=== PATIENT | female | born 1945 | race American Indian/Alaskan Native ===

== ENCOUNTER 2017-12-16 10:14 | Emergency (ER) | payer MEDICARE, OTHER ==
[2017-12-16 10:25] VITALS: BP 176/77
--- NOTE | 2017-12-16 10:45 | Emergency Department Report ---
ED Head Trauma HPI - General Chief complaint: Extremity Injury, Upper Stated complaint: HEAD INJURY Time Seen by Provider: 12/16/17 10:37 Source: patient Mode of arrival: Ambulatory Limitations: No Limitations - History of Present Illness Initial comments: This is a 72-year-old -[place] female who presents with a laceration to left. Patient reports having a television fall on her head around 0200 this morning waking her out of her sleep. She is visiting family from [place] and worried this is possibly a hematoma. States TV has always been unsteady the entire time she has been at home. Her grandson moved a game from the area they had support for television stand. She decided to put something else there to help keep stand steady earlier that day. She thought it was steady and fell asleep on the sofa. She was laying on the sofa and the television fell on her head waking her out of sleep. She cleaned the laceration with water and applied paper towel and pressure for 1 hour prior to coming in. She is experiencing a headache. Denies nausea or vomiting, visual changes, chest pain, numbness or tingling, and shortness of breath. MD Complaint: head injury -: Last night Mechanism of Injury: other (direct blow to head by TV) Location: parietal (left lateral) Loss of Consciousness: no Place: home (son house) Radiation: none Severity: mild Severity scale (0 -10): 2 Quality: aching Consistency: intermittent Provoking factors: other (TV fell off a TV stand) Other Injuries: laceration Associated Symptoms: other (headache). denies: confusion, amnesia, repetitive questioning, vision changes, nausea, vomiting, vertigo, syncope, numbness, weakness, tingling, neck pain - Related Data Previous Rx's Medication Instructions Recorded Last Taken Type Ibuprofen [Motrin 800 MG tab] 800 mg PO Q8HR PRN #15 tablet 12/16/17 Unknown Rx Allergies/Adverse reactions: Allergies Allergy/AdvReac Type Severity Reaction Status Date / Time No Known Allergies Allergy Unverified 12/16/17 10:27 ED Review of Systems ROS: Stated complaint: HEAD INJURY Other details as noted in HPI Constitutional: denies: chills, fever Respiratory: denies: cough, shortness of breath, wheezing Cardiovascular: denies: chest pain, palpitations Gastrointestinal: denies: abdominal pain, nausea, diarrhea Skin: lesions (laceration to left lateral parietal scalp). denies: rash Neurological: denies: headache, weakness, numbness, paresthesias Psychiatric: denies: anxiety, depression ED Past Medical Hx - Past Medical History Hx Hypertension: Yes Hx Diabetes: Yes Additional medical history: HYPOTHYROIDISM. GOUT - Surgical History Past Surgical History?: Yes Additional Surgical History: SAWYER KNEE REPLACEMENT. BACK SURGERY 1989 - Social History Smoking Status: Never Smoker Substance Use Type: None - Medications Home Medications: Home Medications Medication Instructions Recorded Confirmed Last Taken Type Ibuprofen [Motrin 800 MG tab] 800 mg PO Q8HR PRN #15 tablet 12/16/17 Unknown Rx ED Physical Exam - General Limitations: No Limitations General appearance: alert, in no apparent distress - Head Head exam: Present: atraumatic, normocephalic, other (3 cm laceration to left lateral parietal scalp, swelling, no active bleeding or ecchymosis) - Eye Eye exam: Present: normal appearance, PERRL, EOMI Pupils: Present: normal accommodation - Neck Neck exam: Present: normal inspection - Respiratory Respiratory exam: Present: normal lung sounds bilaterally. Absent: respiratory distress - Cardiovascular Cardiovascular Exam: Present: regular rate, normal rhythm, normal heart sounds. Absent: systolic murmur, diastolic murmur, rubs, gallop - GI/Abdominal GI/Abdominal exam: Present: soft, normal bowel sounds. Absent: organomegaly, mass - Neurological Exam Neurological exam: Present: alert, oriented X3, CN II-XII intact, normal gait - Psychiatric Psychiatric exam: Present: normal affect, normal mood - Skin Skin exam: Present: warm, dry, normal color. Absent: intact, rash ED Course Vital Signs 12/16/17 12/16/17 10:19 10:52 Temperature 98.6 F Pulse Rate 80 Respiratory 18 16 Rate Blood Pressure 176/77 O2 Sat by Pulse 100 Oximetry - Laceration /Wound Repair Left Lateral Head Wound Location: head (the left lateral parietal scalp) Wound Length (cm): 3 Wound's Depth, Shape: into muscle, linear Wound Explored: no foreign body removed Irrigated w/ Saline (ccs): 2 Betadine Prep?: Yes Wound Repaired With: sutures Number of Sutures: 2 ([place]) Layer Closure?: No Sterile Dressing Applied?: No - Radiology Data Radiology results: report reviewed CT HEAD WITHOUT CONTRAST: HISTORY: Laceration left lateral, head injury. TECHNIQUE: Sequential 2.5mm CT images. COMPARISON: none. FINDINGS: Cerebral Parenchyma: Within normal limits. Cerebellum: Within normal limits. Brainstem: Within normal limits. Ventricles: Normal. Sella: Normal. Extra-axial spaces: Normal. Basal Cisterns: Normal. Intracranial Hemorrhage: None. Midline Shift: None. Calvarium: Normal. Sinuses: Normal. Mastoid Air Cells: Normal. Visualized Orbits: Normal. IMPRESSION: Cranial CT scan within normal limits. - Medical Decision Making This is a 72 y.o. female presents with laceration to parietal scalp this morning. Patient examined by me. Vitals normal. Patient is non-toxic appearing and stable. CT of head obtained and read by radiologist. Cranial CT scan within normal limits. Laceration closed with 2 patrica review note. Physical findings susceptible of contusion to left parietal scalp with laceration. Given tetanus vaccine and tramadol 50 mg by mouth once in ER. Start ibuprofen 800 mg by mouth every 6 hours when necessary for pain. Discussed ER care plan with patient. Patient agreed with plan. F/U with PCP in 5 days for staple removal. Follow-up with primary care provider in [place] in 2-3 days. Critical care attestation.: If time is entered above; I have spent that time in minutes in the direct care of this critically ill patient, excluding procedure time. ED Disposition Clinical Impression: Laceration of scalp without complication Qualifiers: Encounter type: initial encounter Qualified Code(s): S01.01XA - Laceration without foreign body of scalp, initial encounter Contusion Qualifiers: Encounter type: initial encounter Contusion area: head Contusion of head detail : scalp Qualified Code(s): S00.03XA - Contusion of scalp, initial encounter Disposition: DC- TO HOME OR SELFCARE Is pt being admited?: No Does the pt Need Aspirin: No Condition: Stable Instructions: Laceration (ED), Scalp Contusion in Adults (ED), Staple Care (ED) Additional Instructions: Keep wound dry and clean for 48 hours. Avoid putting to much tension on wound site. Follow up with Primary Care Provider in 2-3 days. Have patrica removed in 5 days by primary care provider or in ER. Return to ER if red, swollen, foul discharge, or fever. Prescriptions: Ibuprofen [Motrin 800 MG tab] 800 mg PO Q8HR PRN #15 tablet PRN Reason: Pain [facility] [Provider Group] - 3-5 Days DAVID BENITEZ MD [Staff Physician] - 3-5 Days JUAN JOSÉ WEBB MD [Staff Physician] - 3-5 Days Time of Disposition: 12:58 Print Language: INDIAN
--- NOTE | 2017-12-16 12:08 | Cat Scan Report ---
CT HEAD WITHOUT CONTRAST: HISTORY: Laceration left lateral, head injury. TECHNIQUE: Sequential 2.5mm CT images. COMPARISON: none. FINDINGS: Cerebral Parenchyma: Within normal limits. Cerebellum: Within normal limits. Brainstem: Within normal limits. Ventricles: Normal. Sella: Normal. Extra-axial spaces: Normal. Basal Cisterns: Normal. Intracranial Hemorrhage: None. Midline Shift: None. Calvarium: Normal. Sinuses: Normal. Mastoid Air Cells: Normal. Visualized Orbits: Normal. IMPRESSION: Cranial CT scan within normal limits.
[2017-12-16] MEDS ORDERED: BOOSTRIX IM ONE (12:54)
[2017-12-16] MEDS ORDERED: ULTRAM PO ONE (12:54)
== END 2017-12-16 13:35 | disposition home or self-care (01) ==
LOC: ED 10:14
DX: S01.01XA Laceration without foreign body of scalp, initial encounter (principal); I10 Essential (primary) hypertension; E11.9 Type 2 diabetes mellitus without complications; E03.9 Hypothyroidism, unspecified; W20.8XXA Other cause of strike by thrown, projected or falling object, initial encounter; Y93.89 Activity, other specified; Y92.89 Other specified places as the place of occurrence of the external cause; Y99.8 Other external cause status
CPT/HCPCS: 70450; 90471; 90715